=== PATIENT | male | born 1955 | race Caucasian/White ===

== ENCOUNTER → 2016-09-19 | Outpatient (CLI) | payer BC | DX: F17.210 Nicotine dependence, cigarettes, uncomplicated (principal); R91.1 Solitary pulmonary nodule | CPT/HCPCS: G0297 ==

== ENCOUNTER 2016-12-25 11:19 | Emergency (ER) | payer BC ==
[2016-12-25 13:19] LABS: HEMOGLOBIN 13.5 gm/dl (14.0-17.5); RED BLOOD COUNT 4.38 M/UL (4.20-5.50); WHITE BLOOD COUNT 8.8 K/UL (4.5-11.0)
[2016-12-25 13:38] LABS: BUN/CREATININE RATIO 14 (0-10)
== END 2016-12-25 16:35 | disposition home or self-care (01) ==
LOC: ER1 11:19
PROVIDERS: Family Medicine
DX: R10.31 Right lower quadrant pain (principal); R10.32 Left lower quadrant pain; I51.9 Heart disease, unspecified; F17.200 Nicotine dependence, unspecified, uncomplicated; Z79.02 Long term (current) use of antithrombotics/antiplatelets; Z88.5 Allergy status to narcotic agent; Z79.84 Long term (current) use of oral hypoglycemic drugs; Z79.899 Other long term (current) drug therapy
CPT/HCPCS: 36415; 80053; 81001; 83690; 85025; 99284

== ENCOUNTER → 2021-10-20 | Outpatient (CLI) | payer BC | LOC: HEART CORB 11:36 | DX: I73.9 Peripheral vascular disease, unspecified (principal) ==

== ENCOUNTER → 2021-11-07 | Outpatient (CLI) | payer BC | LOC: CT 11:48 | DX: I73.9 Peripheral vascular disease, unspecified (principal); R68.89 Other general symptoms and signs | CPT/HCPCS: 36415; 75635; 82565; Q9967 ==

== ENCOUNTER 2021-12-29 11:33 | Emergency (ER) | payer BC ==
[2021-12-29] MEDS ORDERED: PYRIDIUM200 MG PO (15:36)
[2021-12-29] MEDS ORDERED: MACROBID 100 M100 MG PO (15:36)
== END 2021-12-29 15:51 | disposition home or self-care (01) ==
LOC: ER1 11:33
DX: N30.90 Cystitis, unspecified without hematuria (principal)
CPT/HCPCS: 81001; 87077; 87086; 87186; 99283

== ENCOUNTER 2022-01-30 05:42 | Inpatient (IN) | payer BC ==
[~2022-01-30] VITALS: Ht 175.3 cm; Wt 80.3 kg
[~2022-01-30 05:42] MED LIST: MACROBID 100 M100 MG PO; PYRIDIUM200 MG PO
[2022-01-30 06:20] LABS: HEMOGLOBIN 12.4 gm/dl (14.0-17.5); RED BLOOD COUNT 4.44 M/UL (4.20-5.50)
[2022-01-30 06:55] LABS: BUN/CREATININE RATIO 9 (0-10)
[2022-01-30] MEDS ORDERED: ZOFRAN 4 MG TAB4 MG PO (12:19)
[2022-01-30] MEDS ORDERED: METRONIDAZOLE500 MG PO ×2 (12:27→14:37)
[2022-01-30] MEDS ORDERED: CILOSTAZOL50 MG PO (14:33)
[2022-01-30] MEDS ORDERED: FLOMAX 0.4 MG0.4 MG PO (14:33)
[2022-01-30] MEDS ORDERED: AUGMENTIN 500-1 EACH PO (14:33)
[2022-01-30] MEDS ORDERED: NITROGLYCERIN0.4 MG SL (14:34)
[2022-01-30] MEDS ORDERED: CARVEDILOL3.125 MG PO (14:34)
[2022-01-30] MEDS ORDERED: ATORVASTATIN CA40 MG PO (14:34)
[2022-01-30] MEDS ORDERED: AMLODIPINE BESY10 MG PO (14:34)
[2022-01-30] MEDS ORDERED: ISOSORBIDE MONO60 MG PO (14:34)
[2022-01-30] MEDS ORDERED: LISINOPRIL40 MG PO (14:35)
[2022-01-30] MEDS ORDERED: OMEGA-3 ACID ETH1 GM PO (14:35)
[2022-01-30] MEDS ORDERED: CLOPIDOGREL75 MG PO (14:35)
[2022-01-30] MEDS ORDERED: METFORMIN HCL500 MG PO (14:36)
[2022-01-30] MEDS ORDERED: ASPIRIN EC81 MG PO (14:36)
[2022-01-30 20:57] LABS: ADENOVIRUS F 40/41 Not Detected (Negative); ASTROVIRUS Not Detected (Negative); CAMPYLOBACTER Not Detected (Negative); CRYPTOSPORIDIUM Not Detected (Negative); E.COLI 0157 Not Detected (Negative); ENTAMOEBA HISTOLYTICA Not Detected (Negative); ENTEROAGGREGATIVE E.COLI (EAEC Not Detected (Negative); ENTEROTOXIGENIC E.COLI (ETEC) Not Detected (Negative); GIARDIA LAMBLIA Not Detected (Negative); NOROVIRUS GI/GII Not Detected (Negative); PLESIOMONAS SHIGELLOIDES Not Detected (Negative); ROTOVIRUS A Not Detected (Negative); SALMONELLA Not Detected (Negative); SAPOVIRUS Not Detected (Negative); SHIG/ENTEROINVAS.ECOLI (EIEC) Not Detected (Negative); SHIGA-LIK TOX.PRO.E.COLI (STEC Not Detected (Negative); VIBRIO Not Detected (Negative); VIBRIO CHOLERAE Not Detected (Negative); YERSINIA ENTEROCOLITICA Not Detected (Negative)
[2022-01-31 03:07] LABS: HEMOGLOBIN 10.8 gm/dl (14.0-17.5)
[2022-01-31 03:16] LABS: RED BLOOD COUNT 3.82 M/UL (4.20-5.50); WHITE BLOOD COUNT 3.7 K/UL (4.5-11.0)
[2022-01-31 03:35] LABS: BUN/CREATININE RATIO 10 (0-10)
[2022-01-31 08:28] LABS: CLOSTRIDIUM DIFFICILE TOX A/B Not Detected (Negative); ENTEROPATHOGENIC E.COLI (EPEC) DETECTED (Negative)
[2022-02-01 06:19] LABS: HEMOGLOBIN 10.4 gm/dl (14.0-17.5); RED BLOOD COUNT 3.63 M/UL (4.20-5.50); WHITE BLOOD COUNT 3.2 K/UL (4.5-11.0)
[2022-02-01 06:53] LABS: BUN/CREATININE RATIO 7 (0-10)
== END 2022-02-01 11:25 | disposition home or self-care (01) | DRG 394 ==
LOC: ER1 05:42 → CDU 13:25 → MED SURG 4 13:25 → PROG CARE 19:02 → MED SURG 4 01-31 15:00
PROVIDERS: Physician Assistant; Physician Assistant Medical; ADMIT Internal Medicine
DX: K37 Unspecified appendicitis (principal); A04.5 Campylobacter enteritis; Z20.822 Contact with and (suspected) exposure to COVID-19; I95.9 Hypotension, unspecified; E86.0 Dehydration; I25.10 Atherosclerotic heart disease of native coronary artery without angina pectoris; E11.9 Type 2 diabetes mellitus without complications; E83.42 Hypomagnesemia; B96.20 Unspecified Escherichia coli [E. coli] as the cause of diseases classified elsewhere; E87.6 Hypokalemia; I73.9 Peripheral vascular disease, unspecified; E78.5 Hyperlipidemia, unspecified; F17.210 Nicotine dependence, cigarettes, uncomplicated; N40.0 Benign prostatic hyperplasia without lower urinary tract symptoms; I49.5 Sick sinus syndrome; Z95.0 Presence of cardiac pacemaker; Z95.5 Presence of coronary angioplasty implant and graft; Z79.4 Long term (current) use of insulin; Z79.82 Long term (current) use of aspirin; Z90.49 Acquired absence of other specified parts of digestive tract
CPT/HCPCS: 36415; 70450; 71045; 80048; 80053; 81001; 82550; 82553; 82962; 83605; 83690; 83735; 84484; 85025; 85027; 87040; 87086; 87507; 93005; 96361; 96374; 96375; 99285; G0378; J1650; J2185; J2405; J3475; Q9967

== ENCOUNTER 2022-03-08 13:35 | Inpatient (IN) | payer BC ==
[~2022-03-08] VITALS: Ht 175.3 cm; Wt 86.2 kg
[~2022-03-08 13:35] MED LIST changes: +AMLODIPINE BESY10 MG PO; +ASPIRIN EC81 MG PO; +ATORVASTATIN CA40 MG PO; +AUGMENTIN 500-1 EACH PO; +CARVEDILOL3.125 MG PO; +CILOSTAZOL50 MG PO; +CLOPIDOGREL75 MG PO; +FLOMAX 0.4 MG0.4 MG PO; +ISOSORBIDE MONO60 MG PO; +LISINOPRIL40 MG PO; +METFORMIN HCL500 MG PO; +METRONIDAZOLE500 MG PO; +NITROGLYCERIN0.4 MG SL; +OMEGA-3 ACID ETH1 GM PO; +ZOFRAN 4 MG TAB4 MG PO
[2022-03-08 15:32] LABS: HEMOGLOBIN 11.9 gm/dl (14.0-17.5); RED BLOOD COUNT 4.31 M/UL (4.20-5.50); WHITE BLOOD COUNT 5.9 K/UL (4.5-11.0)
[2022-03-08 15:58] LABS: BUN/CREATININE RATIO 15 (0-10)
[2022-03-08] MEDS ORDERED: VITAMIN D21250 MCG PO (18:20)
[2022-03-09 02:41] LABS: RED BLOOD COUNT 4.3 M/UL (4.20-5.50)
[2022-03-09 03:31] LABS: BUN/CREATININE RATIO 15 (0-10)
--- NOTE | 2022-03-09 09:06 | NUR ---
SPOKE WITH RADIOLOGY ABOUT PATIENT'S BLOOD THINNER. THEY STATED IT MUST BE HELD FOR THREE DAYS BEFORE SPINAL TAP CAN BE PERFORMED. RN MADE MD AWARE. MD TO HOLD BLOOD THINNER.
[2022-03-09 12:21] LABS: BORDETELLA PARAPERTUSSIS Not Detected (Not Detectd); BORDETELLA PERTUSSIS Not Detected (Not Detectd); CHLAMYDIA PNEUMONIAE Not Detected (Not Detectd); CORONAVIRUS HKU1 Not Detected (Not Detectd); CORONAVIRUS NL63 Not Detected (Not Detectd); CORONAVIRUS OC43 Not Detected (Not Detectd); CORONOAVIRUS 229E Not Detected (Not Detectd); HUMAN METAPNEUMOVIRUS Not Detected (Not Detectd); HUMAN RHINOVIRUS/ENTEROVIRUS Not Detected (Not Detectd); INFLUENZA A Not Detected (Not Detectd); INFLUENZA B Not Detected (Not Detectd); MYCOPLASMA PNEUMONIAE Not Detected (Not Detectd); PARAINFLUENZA VIRUS 1 Not Detected (Not Detectd); PARAINFLUENZA VIRUS 2 Not Detected (Not Detectd); PARAINFLUENZA VIRUS 3 Not Detected (Not Detectd); PARAINFLUENZA VIRUS 4 Not Detected (Not Detectd); RESPIRATORY SYNCYTIAL VIRUS Not Detected (Not Detectd)
[2022-03-09 14:16] LABS: SARS-CoV-2 NOT DETECTED (Not Detectd)
[2022-03-10 03:12] LABS: HEMOGLOBIN 11.1 gm/dl (14.0-17.5); RED BLOOD COUNT 3.91 M/UL (4.20-5.50)
[2022-03-10 03:32] LABS: BUN/CREATININE RATIO 14 (0-10)
[2022-03-11 02:55] LABS: HEMOGLOBIN 10.1 gm/dl (14.0-17.5); RED BLOOD COUNT 3.61 M/UL (4.20-5.50)
[2022-03-11 03:10] LABS: BUN/CREATININE RATIO 13 (0-10)
[2022-03-12 01:51] LABS: HEMOGLOBIN 11.9 gm/dl (14.0-17.5)
[2022-03-12 01:52] LABS: RED BLOOD COUNT 4.26 M/UL (4.20-5.50); WHITE BLOOD COUNT 14.8 K/UL (4.5-11.0)
[2022-03-12 02:15] LABS: BUN/CREATININE RATIO 15 (0-10)
[2022-03-13 03:25] LABS: HEMOGLOBIN 10.5 gm/dl (14.0-17.5)
[2022-03-13 03:29] LABS: RED BLOOD COUNT 3.75 M/UL (4.20-5.50); WHITE BLOOD COUNT 8.1 K/UL (4.5-11.0)
[2022-03-13 04:03] LABS: BUN/CREATININE RATIO 24 (0-10)
[2022-03-13 14:49] LABS: GLUCOSE,CSF 100 mg/dL (50-80); TOTAL PROTEIN,CSF 53 mg/dL (20-45)
[2022-03-13 14:59] LABS: WBC (AUTOMATED 4 10^3 (0-5)
[2022-03-13] MEDS ORDERED: HYDROCODON-ACE1 EAC4 PO ×3 (16:00→16:23)
[2022-03-13] MEDS ORDERED: BACTRIM DS TAB1 EACH PO ×3 (16:04→16:23)
== END 2022-03-13 16:35 | disposition home or self-care (01) | DRG 516 ==
LOC: ER1 13:35 → CDU 16:50 → M/S 16:50
PROVIDERS: Emergency Medicine; Physician Assistant; Surgery; ADMIT Internal Medicine
PROC: 03BT0ZX Excision of Left Temporal Artery, Open Approach, Diagnostic (ICD-10-PCS; 2022-03-10)
PROC: 009U3ZX Drainage of Spinal Canal, Percutaneous Approach, Diagnostic (ICD-10-PCS; principal; 2022-03-10 08:30)
PROC: B01B1ZZ Fluoroscopy of Spinal Cord using Low Osmolar Contrast (ICD-10-PCS; 2022-03-13)
DX: M47.812 Spondylosis without myelopathy or radiculopathy, cervical region (principal); E87.1 Hypo-osmolality and hyponatremia; E78.5 Hyperlipidemia, unspecified; M54.2 Cervicalgia; R51.9 Headache, unspecified; I25.10 Atherosclerotic heart disease of native coronary artery without angina pectoris; N40.0 Benign prostatic hyperplasia without lower urinary tract symptoms; I73.9 Peripheral vascular disease, unspecified; I10 Essential (primary) hypertension; F17.210 Nicotine dependence, cigarettes, uncomplicated; I49.5 Sick sinus syndrome; M19.91 Primary osteoarthritis, unspecified site; K57.90 Diverticulosis of intestine, part unspecified, without perforation or abscess without bleeding; Z96.652 Presence of left artificial knee joint; D53.9 Nutritional anemia, unspecified; E11.65 Type 2 diabetes mellitus with hyperglycemia; D72.829 Elevated white blood cell count, unspecified; E87.6 Hypokalemia; E11.51 Type 2 diabetes mellitus with diabetic peripheral angiopathy without gangrene; N30.90 Cystitis, unspecified without hematuria; B96.89 Other specified bacterial agents as the cause of diseases classified elsewhere; Z80.1 Family history of malignant neoplasm of trachea, bronchus and lung; Z79.899 Other long term (current) drug therapy; Z79.82 Long term (current) use of aspirin; Z98.890 Other specified postprocedural states; Z82.49 Family history of ischemic heart disease and other diseases of the circulatory system; Z88.1 Allergy status to other antibiotic agents; Z86.16 Personal history of COVID-19; Z95.0 Presence of cardiac pacemaker; Z95.5 Presence of coronary angioplasty implant and graft
CPT/HCPCS: 36415; 70450; 72125; 80053; 81001; 82550; 82553; 82607; 82728; 82746; 82945; 82962; 83036; 83540; 83550; 83735; 84132; 84157; 84484; 85025; 85027; 85652; 86140; 87040; 87077; 87086; 87186; 87633; 89051; 93005; 96361; 96374; 96375; 96376; 99284; G0378; J0690; J0696; J1100; J2001; J2270; J2405; J2550; J2704; J3010; U0002

== ENCOUNTER 2022-03-23 14:17 | Emergency (ER) | payer BC ==
[~2022-03-23 14:17] MED LIST changes: +BACTRIM DS TAB1 EACH PO; +HYDROCODON-ACE1 EAC4 PO; +VITAMIN D21250 MCG PO
[2022-03-23 15:51] LABS: HEMOGLOBIN 12.5 gm/dl (14.0-17.5); RED BLOOD COUNT 4.55 M/UL (4.20-5.50); WHITE BLOOD COUNT 6.8 K/UL (4.5-11.0)
[2022-03-23 16:16] LABS: BUN/CREATININE RATIO 14 (0-10)
[2022-03-23] MEDS ORDERED: PREDNISONE 20 M20 MG PO (16:32)
== END 2022-03-23 16:53 | disposition home or self-care (01) ==
LOC: ER1 14:17
PROVIDERS: Emergency Medicine
DX: M35.3 Polymyalgia rheumatica (principal); J44.9 Chronic obstructive pulmonary disease, unspecified; I25.10 Atherosclerotic heart disease of native coronary artery without angina pectoris; Z88.8 Allergy status to other drugs, medicaments and biological substances
CPT/HCPCS: 70450; 71045; 80053; 81001; 82550; 82553; 84484; 85025; 85652; 86140; 87086; 93005; 99285